=== PATIENT | male | born 1980 | race Caucasian/White ===

== ENCOUNTER 2017-02-27 18:02 | Emergency (ER) | payer MEDICARE, MEDICAID ==
[~2017-02-27] VITALS: Ht 198.1 cm; Wt 136.1 kg
[~2017-02-27 18:02] MED LIST: AMITRIPTYLINE H25 M2 PO; AZITHROMYCIN 2250 MG PO; DELTASONE20 MG PO; DEPAKOTE 250MG250 M1 PO; DEPAKOTE ER500 MG PO; KLONOPIN1 MG PO; LEVAQUIN 250 M250 MG PO; LEVOTHYROXIN0.075 MG PO; LIORESAL 10 MG10 MG; LIORESAL 10 MG10 MG PO; MOBIC7.5 MG PO; NAPROSYN500 MG PO; OMEPRAZOLE40 MG PO; OTHER MISCELL; PREDNISONE50 MG PO; PROAIR HFA8.5 GM MISCELL; PROZAC20 MG PO; TECFIDERA240 MG PO; VISTARIL 25 MG25 M1 PO; VIT D3; XANAX 0.5 MG0.5 M1 PO; ZANTAC 150MG T150 MG PO
[2017-02-27 18:54] LABS: ABSOLUTE BASOPHILS 0.1 thou/uL (0.0-0.2); ABSOLUTE EOSINOPHILS 0.2 thou/uL (0.0-0.7); ABSOLUTE LYMPHOCYTES 1.6 thou/uL (0.8-5.3); ABSOLUTE MONOCYTES 0.3 thou/uL (0.0-1.2); ABSOLUTE NEUTROPHILS 5.6 thou/uL (1.6-8.1); BASOPHILS 0.9 %; EOSINOPHILS 2.8 %; HEMATOCRIT 42.5 % (42.0-52.0); HEMOGLOBIN 14.7 gm/dL (14.0-18.0); LYMPHOCYTES 20.4 %; MCH 29.2 pg (26.0-34.0); MCHC 34.5 g/dL (28.0-37.0); MCV 84.7 fL (80.0-100.0); MONOCYTES 4.4 %; MPV 8.4 fl. (7.2-11.1); NUCLEATED RBCS 0 /100WBC; PLATELET COUNT* 215 thou/uL (150-400); POLYS 71.5 %; RBC 5.02 mil/uL (4.50-6.00); RDW-CV 13.3 % (10.5-14.5); WBC 7.8 thou/uL (4.0-11.0)
[2017-02-27 19:03] LABS: CALCIUM 8.5 mg/dL (8.5-10.1); CREATININE 0.8 mg/dL (0.6-1.3); POTASSIUM 4.4 mmol/L (3.5-5.1)
[2017-02-27 19:07] LABS: ALBUMIN 3.8 g/dL (3.4-5.0); TOTAL BILIRUBIN 0.3 mg/dL (<0.1-1.0); TOTAL PROTEIN 7.1 g/dL (6.4-8.2)
[2017-02-27 19:47] LABS: URINE BILIRUBIN NEGATIVE (Negative); URINE BLOOD NEGATIVE (Negative); URINE CLARITY CLEAR; URINE COLOR YELLOW; URINE GLUCOSE-RANDOM NEGATIVE (Negative); URINE KETONES TRACE (Negative); URINE LEUKOCYTES-REFLEX NEGATIVE (Negative); URINE NITRITE-REFLEX NEGATIVE (Negative); URINE PROTEIN NEGATIVE (Negative); URINE UROBILINOGEN 0.2 E.U./dl (0.2-1.0)
[2017-02-27] MEDS ORDERED: MEDROLDOSEPACK PO (20:09)
[2017-02-27 20:24] VITALS: BP 140/80
== END 2017-02-27 20:26 | disposition home or self-care (01) ==
LOC: M.ERS 18:02
PROVIDERS: Emergency Medicine Emergency Medical Services
DX: H53.8 Other visual disturbances (principal); F31.9 Bipolar disorder, unspecified; G35 Multiple sclerosis; F17.210 Nicotine dependence, cigarettes, uncomplicated; F10.99 Alcohol use, unspecified with unspecified alcohol-induced disorder

== ENCOUNTER 2017-03-17 14:24 | Emergency (ER) | payer MEDICARE, MEDICAID ==
[~2017-03-17] VITALS: Ht 198.1 cm; Wt 136.1 kg
[~2017-03-17 14:24] MED LIST changes: +MEDROLDOSEPACK PO
[2017-03-17 14:30] VITALS: BP 155/98
[2017-03-17] MEDS ORDERED: PREDNISONE 10 M10 MG PO (14:43)
--- NOTE | 2017-03-18 15:44 | EKG ---
[place] [address] ELECTROCARDIOGRAM REPORT Name: CARLOS HOWE JR Room: [facility]#: [id number] Admission: 03/17/17 Attend Phys: Discharge: 03/17/17 Date of : 82 Report #: [id number] THIS REPORT FOR: //name// [facility] ED Test Date: 2017-03-17 Test Time: 14:37:53 Pat Name: CARLOS HOWE Department: Room: Gender: M Journalism Professor: Venkata FRIEDMAN : 1980 Requested By: Samir Andersen Order Number: [id number] MD: Tom Michele Measurements Intervals [place] Rate: 90 P: [place]: QRS: 57 QRSD: 109 T: 67 QT: 356 QTc: 436 Interpretive Statements Sinus rhythm Compared to ECG 06/25/2015 13:57:24 No chenge Electronically Signed On 03-18-2017 15:44:45 [employer]ING [employer]IL [employer]SEM[employer] by Tom Michele [email or web address] <ELECTRONICALLY SIGNED> By: Tom Michele MD, [facility] 03/18/17 1544 1437 1437 Tom Michele MD, FACC /EPI
== END 2017-03-17 15:02 | disposition home or self-care (01) ==
LOC: M.ERS 14:24
DX: G35 Multiple sclerosis (principal); F31.9 Bipolar disorder, unspecified; F17.210 Nicotine dependence, cigarettes, uncomplicated

== ENCOUNTER 2017-04-19 15:26 | Emergency (ER) | payer MEDICARE, MEDICAID ==
[~2017-04-19] VITALS: Ht 198.1 cm; Wt 136.1 kg
[~2017-04-19 15:26] MED LIST changes: +PREDNISONE 10 M10 MG PO
[2017-04-19] MEDS ORDERED: PRILOSEC 20 MG20 MG PO (15:43)
[2017-04-19] MEDS ORDERED: PREDNISONE 10 M10 MG PO (16:13)
[2017-04-19 16:30] VITALS: BP 148/80
== END 2017-04-19 16:31 | disposition home or self-care (01) ==
LOC: M.ERS 15:26
DX: G35 Multiple sclerosis (principal); M41.9 Scoliosis, unspecified; F31.9 Bipolar disorder, unspecified; F17.210 Nicotine dependence, cigarettes, uncomplicated

== ENCOUNTER 2018-04-30 14:01 | Emergency (ER) | payer OTHER, MEDICAID ==
[~2018-04-30] VITALS: Ht 198.1 cm; Wt 127.0 kg
[~2018-04-30 14:01] MED LIST changes: +PRILOSEC 20 MG20 MG PO
[2018-04-30] MEDS ORDERED: TECFIDERA240 MG PO (14:15)
[2018-04-30] MEDS ORDERED: CLONAZEPAM 1 MG1 M1 PO (14:16)
[2018-04-30] MEDS ORDERED: MOBIC7.5 MG PO (14:16)
[2018-04-30 14:43] LABS: ABSOLUTE EOSINOPHILS 0.3 thou/uL (0.0-0.7); ABSOLUTE LYMPHOCYTES 1.3 thou/uL (0.8-5.3); ABSOLUTE MONOCYTES 0.3 thou/uL (0.0-1.2); ABSOLUTE NEUTROPHILS 4.7 thou/uL (1.6-8.1); BASOPHILS 0.5 %; EOSINOPHILS 3.9 %; HEMATOCRIT 42.3 % (42.0-52.0); HEMOGLOBIN 14.8 gm/dL (14.0-18.0); LYMPHOCYTES 19.6 %; MCH 29.6 pg (26.0-34.0); MCHC 34.9 g/dL (28.0-37.0); MCV 84.7 fL (80.0-100.0); MONOCYTES 4.7 %; MPV 9.4 fl. (7.2-11.1); NUCLEATED RBCS 0 /100WBC; PLATELET COUNT* 212 thou/uL (150-400); POLYS 71.3 %; RBC 4.99 mil/uL (4.50-6.00); RDW-CV 13.4 % (10.5-14.5); WBC 6.6 thou/uL (4.0-11.0)
[2018-04-30 15:11] LABS: ALBUMIN 3.9 g/dL (3.4-5.0); ALKALINE PHOSPHATASE 75 U/L (46-116); ANION GAP 7 mmol/L (7-16); BUN 8 mg/dL (7-18); CHLORIDE 104 mmol/L (98-107); CO2 29 mmol/L (21-32); CREATININE 0.9 mg/dL (0.6-1.3); GLUCOSE 117 mg/dL (70-99); LIPASE 102 U/L (73-393); NT-PRO BRAIN NAT PEPTIDE 61 pg/mL (<300); POTASSIUM 3.4 mmol/L (3.5-5.1); SGOT 17 U/L (15-37); SGPT 24 U/L (30-65); SODIUM 140 mmol/L (136-145); TOTAL BILIRUBIN 0.6 mg/dL (<0.1-1.0); TROPONIN-I LEVEL <0.06 ng/mL (<0.06)
[2018-04-30 15:48] LABS: URINE BLOOD NEGATIVE (Negative); URINE CLARITY CLEAR; URINE COLOR YELLOW; URINE GLUCOSE-RANDOM NEGATIVE (Negative); URINE KETONES NEGATIVE (Negative); URINE LEUKOCYTES-REFLEX NEGATIVE (Negative); URINE NITRITE-REFLEX NEGATIVE (Negative); URINE PROTEIN TRACE (Negative)
[2018-04-30 15:49] LABS: URINE BILIRUBIN 1+ (Negative)
[2018-04-30 15:50] LABS: ICTOTEST (BILI CONFIRMATORY) Negative (Negative)
[2018-04-30] MEDS ORDERED: BENTYL 20 MG TA20 M1 PO (16:38)
[2018-04-30] MEDS ORDERED: VENTOLIN HFA 1818 GM INH (16:38)
[2018-04-30] MEDS ORDERED: AMOXICILLIN 50500 M1 PO (16:38)
[2018-04-30 17:03] VITALS: BP 148/91
--- NOTE | 2018-05-01 14:09 | EKG ---
[place] [address] ELECTROCARDIOGRAM REPORT Name: CARLOS HOWE JR Room: [facility]#: [id number] Admission: 04/30/18 Attend Phys: Discharge: 04/30/18 Date of : 82 Report #: [id number] THIS REPORT FOR: //name// [facility] ED Test Date: 2018-04-30 Test Time: 14:49:40 Pat Name: CARLOS HOWE Department: Room: Gender: M Dovetailer: YURI : 1980 Requested By: Terrie Max Order Number: [id number] MD: Jason Merchant Measurements Intervals Williams Rate: 76 P: 30 ND: 163 QRS: 34 QRSD: 102 T: 61 QT: 383 QTc: 431 Interpretive Statements Sinus rhythm Abnormal R-wave progression, early transition Borderline T wave abnormalities Baseline wander in lead(s) V3 Compared to ECG 03/17/2017 14:37:53 T-wave abnormality now present Electronically Signed On 05-01-2018 14:09:16 [employer]LINE BANKING SPECIALIST by Jason Merchant [email or web address] <ELECTRONICALLY SIGNED> By: Jason Merchant MD, [facility] 05/01/18 1409 1449 1449 Jason Merchant MD, [facility] /EPI
== END 2018-04-30 17:18 | disposition home or self-care (01) ==
LOC: M.ERS 14:01
PROVIDERS: Nurse Practitioner Family
DX: K76.0 Fatty (change of) liver, not elsewhere classified (principal); D73.4 Cyst of spleen; H66.92 Otitis media, unspecified, left ear; J20.9 Acute bronchitis, unspecified; R19.7 Diarrhea, unspecified; F17.210 Nicotine dependence, cigarettes, uncomplicated; G35 Multiple sclerosis; M41.9 Scoliosis, unspecified; F31.9 Bipolar disorder, unspecified; F41.0 Panic disorder [episodic paroxysmal anxiety]

== ENCOUNTER 2018-08-10 08:42 | Emergency (ER) | payer MEDICARE, MEDICAID ==
[~2018-08-10] VITALS: Ht 198.1 cm; Wt 122.5 kg
[~2018-08-10 08:42] MED LIST changes: +AMOXICILLIN 50500 M1 PO; +BENTYL 20 MG TA20 M1 PO; +CLONAZEPAM 1 MG1 M1 PO; +VENTOLIN HFA 1818 GM INH
[2018-08-10] MEDS ORDERED: LIPITOR 20 MG T20 M1 PO (08:56)
[2018-08-10] MEDS ORDERED: VITAMIN D5000 UNI1 PO (08:56)
[2018-08-10 10:43] VITALS: BP 148/85
== END 2018-08-10 10:43 | disposition home or self-care (01) ==
LOC: M.ERS 08:42
DX: S60.022A Contusion of left index finger without damage to nail, initial encounter (principal); M89.8X8 Other specified disorders of bone, other site; F17.210 Nicotine dependence, cigarettes, uncomplicated; M41.9 Scoliosis, unspecified; F31.9 Bipolar disorder, unspecified; F41.9 Anxiety disorder, unspecified; W22.8XXA Striking against or struck by other objects, initial encounter; Y92.89 Other specified places as the place of occurrence of the external cause; Y93.89 Activity, other specified; Y99.8 Other external cause status

== ENCOUNTER 2018-10-12 11:34 | Inpatient (IN) | payer MEDICARE, MEDICAID ==
[~2018-10-12] VITALS: Ht 198.1 cm; Wt 122.1 kg
[~2018-10-12 11:34] MED LIST changes: +LIPITOR 20 MG T20 M1 PO; +VITAMIN D5000 UNI1 PO
[2018-10-12 11:36] VITALS: BP 180/108
[2018-10-12 11:58] LABS: ABSOLUTE EOSINOPHILS 0.2 thou/uL (0.0-0.7); ABSOLUTE LYMPHOCYTES 1.1 thou/uL (0.8-5.3); ABSOLUTE MONOCYTES 0.3 thou/uL (0.0-1.2); ABSOLUTE NEUTROPHILS 7.4 thou/uL (1.6-8.1); BASOPHILS 0.3 %; EOSINOPHILS 1.8 %; HEMATOCRIT 42.8 % (42.0-52.0); HEMOGLOBIN 14.7 gm/dL (14.0-18.0); LYMPHOCYTES 12.2 %; MCH 28.5 pg (26.0-34.0); MCHC 34.3 g/dL (28.0-37.0); MCV 83.3 fL (80.0-100.0); MONOCYTES 3.4 %; MPV 8.8 fl. (7.2-11.1); NUCLEATED RBCS 0 /100WBC; PLATELET COUNT* 199 thou/uL (150-400); POLYS 82.3 %; RBC 5.14 mil/uL (4.50-6.00); RDW-CV 13.7 % (10.5-14.5)
[2018-10-12 12:06] LABS: CALCIUM 8.5 mg/dL (8.5-10.1); CREATININE 0.7 mg/dL (0.6-1.3); POTASSIUM 3.5 mmol/L (3.5-5.1)
[2018-10-12 12:18] LABS: ALBUMIN 4.3 g/dL (3.4-5.0); TOTAL BILIRUBIN 0.4 mg/dL (<0.1-1.0); TOTAL PROTEIN 7.6 g/dL (6.4-8.2)
[2018-10-12 12:35] LABS: URINE BILIRUBIN NEGATIVE (Negative); URINE BLOOD NEGATIVE (Negative); URINE CLARITY CLEAR; URINE COLOR YELLOW; URINE GLUCOSE-RANDOM NEGATIVE (Negative); URINE KETONES TRACE (Negative); URINE LEUKOCYTES-REFLEX NEGATIVE (Negative); URINE NITRITE-REFLEX NEGATIVE (Negative); URINE PROTEIN NEGATIVE (Negative); URINE SPECIFIC GRAVITY 1.015 (1.005-1.030); URINE UROBILINOGEN 0.2 E.U./dl (0.2-1.0)
[2018-10-12 12:42] LABS: AMP/METHAMP Negative (Negative); BARBITURATES Negative (Negative); BENZODIAZEPINES Negative (Negative); COCAINE Negative (Negative); METHADONE Negative (Negative); OPIATES Negative (Negative); PCP Negative (Negative); THC Negative (Negative)
[2018-10-12 16:03] VITALS: BP 145/95
[2018-10-12 20:00] VITALS: BP 163/108
[2018-10-13] MEDS ORDERED: AMITRIPTYLINE100 MG PO (02:36)
[2018-10-13 04:00] VITALS: BP 142/70
[2018-10-13 04:39] LABS: CHOLESTEROL 124 mg/dL (<200); HDL CHOLESTEROL 21 mg/dL (>40); LDL CHOLESTEROL 74 mg/dL (<100); SERUM ASSESSMENT CLEAR; TC:HDL 5.9 Ratio (Not establshd); TRIGLYCERIDE 148 mg/dL (<150); VLDL 30 mg/dL (<40)
[2018-10-13 08:00] VITALS: BP 138/87
[2018-10-13 12:00] VITALS: BP 141/86
[2018-10-13 16:00] VITALS: BP 143/82
[2018-10-13 20:17] VITALS: BP 162/110
[2018-10-13 23:10] LABS: GLYCOHEMOGLOBIN (HGB A1C) 5.2 % (4.8-5.6)
[2018-10-14] VITALS (7 sets, daily range): BP systolic 124–163; BP diastolic 74–90
[2018-10-14 04:19] LABS: HEMATOCRIT 43.6 % (42.0-52.0); HEMOGLOBIN 14.9 gm/dL (14.0-18.0); MCH 28.7 pg (26.0-34.0); MCHC 34.1 g/dL (28.0-37.0); MCV 84.2 fL (80.0-100.0); MPV 9.6 fl. (7.2-11.1); RBC 5.19 mil/uL (4.50-6.00); RDW-CV 13.5 % (10.5-14.5)
[2018-10-14 04:49] LABS: ALBUMIN 3.8 g/dL (3.4-5.0); CALCIUM 9.1 mg/dL (8.5-10.1); CREATININE 0.8 mg/dL (0.6-1.3); MAGNESIUM 1.9 mg/dL (1.8-2.4); POTASSIUM 3.8 mmol/L (3.5-5.1); TOTAL BILIRUBIN 0.5 mg/dL (<0.1-1.0); TOTAL PROTEIN 7.1 g/dL (6.4-8.2)
[2018-10-15] VITALS: BP 137/79
[2018-10-15 03:53] VITALS: BP 139/82
[2018-10-15 08:00] VITALS: BP 148/84
[2018-10-15 11:53] VITALS: BP 146/85
[2018-10-15 15:54] VITALS: BP 133/65
[2018-10-15 20:00] VITALS: BP 153/92
[2018-10-16] VITALS: BP 166/88
[2018-10-16 04:00] VITALS: BP 178/98
[2018-10-16 09:02] VITALS: BP 143/85
[2018-10-16 12:21] VITALS: BP 150/79
[2018-10-16 16:00] VITALS: BP 144/84
[2018-10-17] VITALS: BP 131/89
[2018-10-17 04:00] VITALS: BP 143/75
[2018-10-17 05:18] LABS: HEMATOCRIT 42.1 % (42.0-52.0); HEMOGLOBIN 14.2 gm/dL (14.0-18.0); MCH 28.8 pg (26.0-34.0); MCHC 33.8 g/dL (28.0-37.0); MCV 85.2 fL (80.0-100.0); MPV 9.2 fl. (7.2-11.1); RBC 4.94 mil/uL (4.50-6.00); RDW-CV 13.9 % (10.5-14.5); WBC 8.3 thou/uL (4.0-11.0)
[2018-10-17 05:43] LABS: ALBUMIN 3.2 g/dL (3.4-5.0); CALCIUM 7.8 mg/dL (8.5-10.1); CREATININE 0.7 mg/dL (0.6-1.3); MAGNESIUM 2.1 mg/dL (1.8-2.4); POTASSIUM 3.4 mmol/L (3.5-5.1); TOTAL BILIRUBIN 0.2 mg/dL (<0.1-1.0); TOTAL PROTEIN 5.9 g/dL (6.4-8.2)
[2018-10-17 08:00] VITALS: BP 143/94
[2018-10-17 12:08] VITALS: BP 139/82
[2018-10-17 13:12] VITALS: BP 139/82
[2018-10-17] MEDS ORDERED: SYNTHROID175 MCG PO (13:30)
--- NOTE | 2018-10-20 10:45 | CON ---
[address] [address] CONSULTATION Name: CARLOS HOWE JR Room: [address] M.R.#: [id number] Admission: 10/12/18 Attend Phys: Alex Pineda Discharge: 10/17/18 Date of : 82 Report #: [id number] THIS REPORT FOR: //name// CC: Pawan Mccann DATE OF SERVICE: 10/13/2018 HISTORY OF PRESENT ILLNESS: This is a 38-year-old male patient who was admitted with dizziness and inability to walk. He fell down because of balance issues. I do not believe he hit his head. History is difficult partly because of his psychiatric issues. He gives a history that he was diagnosed with multiple sclerosis at the age of 19. He follows up with Dr. No who is a neurologist at [place]. He indicates that he had multiple MRIs and has been diagnosed with relapsing remitting MS. His history is pretty unstructured what kind of relapses he had. His first episode at the age of 19, mainly consisted of numbness on one side. He does not know which side it was. He has paralysis in the past. He usually responds to steroids. He does not know how many times he got steroids, but estimated 2 or 3 times. He does not like IV steroids. He says they are not effective. He has no side effects from steroids. REVIEW OF SYSTEMS: Positive for what he described as bipolar disorder, anxiety, panic disorder. 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 He has been on multiple-disease modifying treatment for MS and presently is on Tecfidera. He has no significant side effects from that. A 14-point review of system was carried out, which is difficult because he is not a very good historian. He does not believe he has any new eye, ENT, cardiac, respiratory, , musculoskeletal, constitutional, dermatological, hematological, allergic or throat symptom associated with present symptomatology. PAST MEDICAL HISTORY: Positive for MS, which according to him was confirmed with an LP. FAMILY HISTORY: Negative for any early age stroke. SOCIAL HISTORY: He does have a history of smoking, but he does not drink alcohol. PHYSICAL EXAMINATION: The patient's examination indicates he is alert. He is responsive, poorly cooperative. Speech looks intact. He believes his memory and fund of knowledge is at his baseline. Cranial nerve examination, he keeps his eyes covered, but he can move his eyes in all directions. His visual field looks intact and cranial nerve examination mostly looks unremarkable. He does move all 4 extremities. His strength looks symmetrical[place] [id number] CONSULTATION Name: CARLOS HOWE JR Room: [address] M.R.#: [id number] Admission: 10/12/18 Attend Phys: Alex Pineda Discharge: 10/17/18 Date of : 82 Report #: [id number] is symmetrical and tone and reflexes are symmetrical. He said he cannot walk, so I did not force him. I will ask PT to ambulate him. He is a very well-built individual who does not have any thyroid mass. His pulses appear to be palpable. There is no edema, cyanosis or jaundice. Blood pressure is 138/87, respirations 18, pulse is 87, and temperature is 98.8. LABORATORY DATA: Urinalysis showed no evidence of infection. His white count is normal. His MRI was reviewed. It is difficult to tell because we have nothing for comparison. IMPRESSION: This patient has a history of multiple sclerosis. It is difficult to tell how much is new and how much is old. The symptoms are also difficult to evaluate because of the patient's psychiatric history. I discussed his options with him. We will go ahead and give him a short course of steroids to see if he improves with a presumptive diagnosis of relapse of MS since we do not have his prior records, it is very difficult to tell and he understands that. He said he never had any side effects from steroids. He wants to get steroids and as I said, we will give him a few days of steroids and see how he does. I agree with the rehab consult. Thank you very much for this referral. <ELECTRONICALLY SIGNED> By: Efra Phillips MD 10/20/18 1045 1043 1235Efra Phillips MD /nt
== END 2018-10-17 14:28 | disposition home or self-care (01) | DRG 59 ==
LOC: M.ERS 11:34 → M.TBA-ER 14:33 → M.ERS 14:33 → M.2W 15:35 → M.TBA-ER 15:35 → M.2W 16:15
PROVIDERS: Family Medicine; Physician Assistant; ADMIT Internal Medicine
DX: G35 Multiple sclerosis (principal); J96.10 Chronic respiratory failure, unspecified whether with hypoxia or hypercapnia; F31.9 Bipolar disorder, unspecified; I10 Essential (primary) hypertension; G47.00 Insomnia, unspecified; F41.0 Panic disorder [episodic paroxysmal anxiety]; F17.210 Nicotine dependence, cigarettes, uncomplicated; Z79.899 Other long term (current) drug therapy